=== PATIENT | female | born 2000 | race Caucasian/White ===

== ENCOUNTER → 2024-04-28 | Outpatient (CLI) | payer OTHER ==
[~2024-04-28] MED LIST: CEFTIN500 MG PO; Gadoterate 5 ML VIAL IV ONE; Iohexol 300 - 10 ML VIAL IV ONE; NO HOME MEDICATIONS; TAMIFLU 75MG75 MG PO; Triamcinolone 40 MG/ML 1 ML VIAL IJ ONE
== END ==
LOC: COL.RAD 07:30
DX: M25.552 Pain in left hip (principal)
CPT/HCPCS: A9575; J0665; J3301; Q9967